=== PATIENT | female | born 1970 | race Caucasian/White ===

== ENCOUNTER 2022-12-18 19:22 | Emergency (ER) | payer BC ==
[~2022-12-18] VITALS: Ht 162.6 cm; Wt 53.5 kg
[2022-12-18 19:35] VITALS: BP_SYST 154; PULSE 71; RESP 15; TEMP 96.5; O2SAT 99
[2022-12-18 20:39] LABS: BASOPHILS # (AUTO) 0.1 K/uL (0.0-0.2); BASOPHILS % (AUTO) 0.7 % (0.0-2.0); EOSINOPHILS # (AUTO) 0.1 K/uL (0.0-0.4); EOSINOPHILS % (AUTO) 0.9 % (0.0-4.0); HEMATOCRIT 33.6 % (36-48); HEMOGLOBIN 11.4 g/dL (12.0-16.0); LYMPHOCYTES # (AUTO) 2.3 K/uL (1.0-5.5); LYMPHOCYTES % (AUTO) 30.4 % (20.5-51.5); MEAN CORPUSCULAR HEMOGLOBIN 30 pg (27-31); MEAN CORPUSCULAR HGB CONC 34 % (32-36); MEAN CORPUSCULAR VOLUME 87 fL (79.0-98.0); MONOCYTES # (AUTO) 0.6 K/uL (0.0-1.0); MONOCYTES % (AUTO) 7.7 % (1.7-9.3); NEUTROPHILS # (AUTO) 4.6 K/uL (1.8-7.7); NEUTROPHILS % (AUTO) 60.3 % (40.0-70.0); PLATELET COUNT (AUTO) 327 K/uL (130-430); RED BLOOD CELL COUNT(AUTO) 3.85 MIL/uL (4.2-6.2); RED CELL DISTRIBUTION WIDTH 12.9 % (9.0-15.0); WHITE BLOOD COUNT (AUTO) 7.7 K/uL (4.8-10.8)
[2022-12-18] MEDS ORDERED: KETOROLAC TROMETHAMINE 15 MG VIAL IVP ONE (20:45)
[2022-12-18] MEDS ORDERED: NACL 0.9% 1,000 ML IV ONE ×2 (20:45→21:45)
[2022-12-18 20:51] LABS: BILIRUBIN,URINE NEGATIVE (NEGATIVE); BLOOD, URINE 3+ (NEGATIVE); CLARITY/URINE TURBID (CLEAR); COLOR,URINE RED (YELLOW); GLUCOSE,URINE TRACE (NEGATIVE); KETONES,URINE TRACE (NEGATIVE); LEUKOCYTE ESTERASE ,URINE 1+ (NEGATIVE); NITRITE, URINE POSITIVE (NEGATIVE); PROTEIN URINE NEGATIVE (NEGATIVE)
[2022-12-18 21:21] LABS: BACTERIA,URINE MODERATE /HPF (None Seen); RBC,URINE 50-80 /HPF (0-3)
[2022-12-18 21:21] LABS: ALBUMIN 3.2 g/dL (3.4-4.8); CALCIUM 8.7 mg/dL (8.4-11.0); CREATININE 0.56 mg/dL (0.55-1.30); POTASSIUM 3.8 mmol/L (3.5-5.1); TOTAL BILIRUBIN 0.3 mg/dL (0.0-1.0); TOTAL PROTEIN, SERUM 6.9 g/dL (6.4-8.3)
[2022-12-18 21:22] LABS: YEAST,URINE Moderate /HPF (None Seen)
[2022-12-18] MEDS ORDERED: cefTRIAXone 1 GM in D5W 50 ML IV ONE (21:45)
[2022-12-18] MEDS ORDERED: IBUP-1969 PO (22:10)
[2022-12-18] MEDS ORDERED: CEPH-548 PO (22:10)
[2022-12-18] MEDS ORDERED: cefTRIAXone 1 GM VIAL ONE (22:13)
[2022-12-18 23:05] VITALS: BP_SYST 149; PULSE 84; RESP 15; TEMP 97.5; O2SAT 99
== END 2022-12-18 23:05 | disposition home or self-care (01) ==
LOC: SED 19:22
DX: N23 Unspecified renal colic (principal); N39.0 Urinary tract infection, site not specified; R11.0 Nausea; R42 Dizziness and giddiness; Z79.899 Other long term (current) drug therapy
CPT/HCPCS: 99285; 74176; 96365; 96361; 96375; 80053; 81000; 83690; 85025; 87040; 87086; 84484; 36415; 76376; 81025; J0696; J1885; J7030